=== PATIENT | male | born 1945 | race Caucasian/White ===

== ENCOUNTER 2016-06-20 10:46 | Emergency (ER) | payer MEDICARE, MEDICAID ==
[~2016-06-20] VITALS: Ht 182.9 cm; Wt 86.0 kg
[~2016-06-20 10:46] MED LIST: ACETAMINOPHEN500 M3 PO; ACTOS 15MG TABL15 MG PO; ASPIRIN CHILDRE81 M1 PO; BACTRIM DS 8001 TAB PO; BISAC-EVAC10 MG PR; CLINDAMYCIN HC300 MG PO; COMBIVENT INH14.7 G1 IN; CONSTULOSE10 GM/15 M PO; COUMADIN 5MG TAB5 MG PO; DEPAKOTE DR500 MG PO; DEPAKOTE ER500 MG PO; Depakote ER500 MG PO; GABAPENTIN 100100 MG PO; GAVISCON 6180 ML/BOT OR; GEODON40 MG PO; IMODIUM 2MG. CAP2 MG PO; IRON TABLETS325 M1 PO; KEPPRA 500 MG500 MG PO; LASIX20 MG PO; LEVAQUIN500 MG PO; LORAZEPAM0.5 MG/TAB IM; METFORMIN HCL850 MG PO; MIRALAX17 GM/PACK PO; PROMETHAZINE HC25 M1 PO; PROSCAR5 MG PO; SINEMET 25/1001 TAB PO; TRAZODONE 50MG50 MG PO; TYLENOL W/CODEI1 TA2 PO; ZYPREXA15 MG PO
[2016-06-20] MEDS ORDERED: KONSYL6 GM/DOSE PO (11:02)
--- NOTE | 2016-06-20 11:08 | Emergency Room Report ---
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 STATES PT WAS NOT FULLY RESPONSIVE AND HAD LEFT ARM DRIFT. PT ALERT AND ORIENTED AT THIS TIME. NO DROOPING OR ARM DRIFT NOTED AT THIS TIME. 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 N Clinical Suspician of Infection? N Mental Status: 1 - Regular (Normal Baseline) Sepsis Risk:Possible Sepsis Risk Have you (or family members/close friends) recently traveled outside the [place]? N If Yes, where/when: Have you had exposure to infectious disease within the past month? N TB? Other? Specify: Comment The patient's primary by ambulance from [facility]. Personnel there are reported to have noticed a LEFT facial droop and slurred speech, decreased responsiveness, and LEFT arm drift. The patient currently says he feels generally weak but otherwise has no complaints. He denies pain. I do not see any prior diagnoses of stroke or TIA. He does have Parkinson's disease. He says he vomited one week ago. No current nausea, shortness of breath, visual disturbance, numbness. No cough or fever. No diarrhea. ALLERGIES Coded Allergies: escitalopram (From Lexapro) (UNKNOWN 06/07/15) Home Medications Active Scripts Loperamide Hcl (Loperamide) 2 MG PO Q6HP #30 CAP Prov: 06/08/12 Reported Medications Aspirin 81 MG PO DAILY Acetaminophen (Acetaminophen Extra Strength) 1,000 MG PO Q6HP PRN PAIN/ FEVER Bisacodyl (Bisacodyl Supp) 10 MG [place] DAILYP PRN CONSTIPATION Lactulose (Constulose) 10 GM PO DAILYP PRN CONSTIPATION APAP 300MG W/CODEINE 30MG (Acetaminophen-Cod #3 Tablet) 1 TAB PO TID METFORMIN HCL (Metformin HCl) 850 MG PO TID GABAPENTIN (Gabapentin 100MG Capsule) 600 MG PO TID MAG CARB/AL HYDROX/ALGINIC AC (Acid Gone Antacid Liquid) 30 ML OR Q4HP Ferrous Sulfate (Iron) 325 MG PO DAILY Finasteride (Proscar) 5 MG PO DAILY CARBIDOPA/LEVODOPA (Carbidopa-Levodopa 25-100 Tab) 1 TAB PO TID Pioglitazone (Actos 15MG) 15 MG PO DAILY TRAZODONE HCL (Trazodone HCl) 50 MG PO QHS ZIPRASIDONE HCL (Geodon) 20 MG PO DAILY Levetiracetam (Keppra 500 Mg Tablet) 250 MG PO TID Psyllium (Konsyl) 6 GM PO BID Ascorbic Acid (Vitamin C) 1,000 MG PO DAILY Ondansetron (Zofran 4MG Odt) 4 MG PO Q6HP PRN NAUSEA AND VOMITING History Medical History General CAD? No Angina: Yes [place]: Yes Hypertension? Yes Hyperlipidemia? Yes CHF? No COPD? Yes Asthma? Yes Anemia? Yes Hernia? No Thyroid Problems? No Hypothyroidism? No CVA? No Seizures? Yes Diabetes? Yes End Stage Renal Disease? No UTI? No Stones? No GB Disease: No Nephritic Syndrome? No Asplenia? No Hepatitis? No Sickle Cell Disease? No Arthritis? Yes Cataracts? No Glaucoma? No MRSA? No TB? No Cancer? No Immunization Hx DT/Tetanus > 10 YRS Flu THISFLUSEA Pneumonia Received In Past Surgical Hx Previous Surgery?Y TOE SURGERY-7 YEARS AGO Appendectomy EYE SURGERY-2 YEARS AGO PACEMAKER ABLASION RT GREAT TOE AMPUTATION Family History Family Hx Diabetes Yes CAD Yes Hypertension Yes Hyperlipidemia Yes Cancer No TB No Social History Smoking Hx Smoker: Former Smoker Tobacco: No Packs/day < 1 Pack Alcohol Alcohol: No Review of Systems All Other Systems Reviewed and Negative Constitutional denies fever, weakness Eyes denies blindness, denies blurred vision ENT denies: ear pain, throat pain. Respiratory denies cough, denies shortness of breath Cardiovascular denies chest pain Gastrointestinal denies abdominal pain, denies diarrhea, vomiting (one week ago) Genitourinary denies: dysuria. Musculoskeletal denies joint pain, denies muscle pain Psychiatric/Neurological denies headache, denies numbness Physical Exam Vital Signs Vital Signs Date Time Temp Pulse Resp B/P Pulse O2 O2 Flow FiO2 Ox Delivery Rate 06/20 1256 75 20 114/67 94 06/20 1154 78 20 123/72 94 01/11 1103 98.6 101 20 105/60 94 General Appearance normal appearance, WD/WN Eye Exam - bilateral eye normal exam, bilateral eye PERRL, bilateral eye EOMI Ear, Nose, Throat hearing grossly normal, normal ENT inspection Neck normal inspection, non-tender, supple, full range of motion Respiratory Status Yes: trachea midline, chest symmetrical, non tender chest. No: respiratory distress. Lung Sounds bilateral: normal breath sounds, lungs clear. 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-XII nml as tested (Parkinsonian tremor) Mental status normal mood/affect Skin intact, normal color, warm/dry Stroke Score/Tx Stroke Evaluation NIH STROKE SCORE NIH STROKE SCORE Response Value 1a.Level of Consciousness ALERT 0 1b.LOC Questions BOTH INCORRECT 2 1c.LOC Commands OBEYS BOTH CORRECTLY 0 2 .Best Gaze NORMAL 0 3 .Visual NO VISUAL LOSS 0 4 .Facial Palsy NORMAL 0 5a.Motor Arm Left NO DRIFT 0 5b.Motor Arm Right NO DRIFT 0 6a.Motor Leg Left DRIFT 1 6b.Motor Leg Right DRIFT 1 7 .Limb Ataxia ABSENT 0 8 .Sensory NORMAL 0 9 .Best Language NO APHASIA 0 10.Dysarthria NORMAL ARTICULATION 0 ED.NIH11 NO NEGLECT 0 Total 4 Medical Decision Making LABS/Meds/Orders Pt receiving controlled substance in ED? No Results/Orders Laboratory Tests 06/20/16 1050: Sodium 139, Potassium 4.5, Chloride 104, Carbon Dioxide 27, BUN 29 H, Creatinine 1.1, Estimated Creat Clear 78, Estimated GFR (MDRD) 67, Glucose 162 H, Calcium 8.9, Total Bilirubin 0.2, AST 10 L, ALT 11 L, Alkaline Phosphatase 80, Troponin I 0.02, Total Protein 6.9, Albumin 3.2 L, Globulin 3.7 H, Albumin /Globulin Ratio 0.9 L, WBC 8.6, RBC 3.99 L, Hgb 12.2 L, Hct 35.9 L, MCV 89.8 , RDW 14.6, Plt Count 215, MPV 9.5, Gran % 74.8, Gran # 6.4, Lymphocytes % 15.3, Monocytes % 7.0, Eosinophils % 2.3, Basophils % 0.7, Lymphocytes # 1.3, Monocytes # 0.6, Eosinophils # 0.2, Basophils # 0.1, PUBS MCHC 34.1, MCH 30.6 Orders Procedure Date/time Status ELECTROCARDIOGRAM REQUEST 06/20 112 Active CHEST-PORTABLE 06/20 112 Active URINALYSIS/COMPLETE 06/20 1120 Active TROPONIN I 06/20 1120 Complete CBC WITH AUTO DIFF 06/20 1120 Complete CHEM 12 PROFILE 06/20 1121 Complete CM/EKG CM/EKG Comments EKG interpreted by David Horne MD: Rhythm: Ventricular paced rhythm Rate: 84 No evidence of acute ischemia or injury XRAY/CT/US XRAY/CT/US XRAY chest Comment X-ray interpreted by David Horne M.D. No infiltrate, pneumothorax, pleural effusion, or wide mediastinum. Pacemaker present. CT head Comment CT scan interpreted by radiologist: Atrophy with chronic ischemic change. No acute process. Progress - 12:55 PM: Case discussed with Dr. Blue, covering for Dr. Law. Discussed all clinical data. He recommends the patient be started on aspirin 325 mg per day, currently he is only taking 81 mg a day. He recommends starting lisinopril 5 mg a day and discharging the patient back at [facility]. Departure Departure Disposition DC Home or Self Care(routine) Clinical Impression Primary Impression: TIA (transient ischemic attack) Qualifiers: Transient cerebral ischemia type: unspecified Qualified Code: G45.9 - Transient cerebral ischemic attack, unspecified Condition STABLE Referrals Dalton Law (PCP/Family) Patient Instructions DI for Transient Ischemic Attack Additional Instructions Increase aspirin dose to 325 mg a day and start lisinopril 5 mg a day. Return to the emergency department if facial droop, weakness, decreased responsiveness, or speech problems return. Prescriptions Current Visit Scripts Aspirin (Aspirin Ec) 325 MG PO DAILY #30 ECT LISINOPRIL (Lisinopril) 5 MG PO DAILY #30 TAB ED Critical Care Critical Care No at 1301
[2016-06-20] MEDS ORDERED: ZOFRAN ODT4 MG PO (11:15)
[2016-06-20] MEDS ORDERED: VITAMIN C500 M1 PO (11:15)
--- NOTE | 2016-06-20 11:15 | RADIOLOGY REPORT PS360 ---
CT HEAD W/O CONTRAST HISTORY: Left-sided facial droop with upper extremity weakness AMS COMPARISON: 09/21/2013 TECHNIQUE: Axial images obtained without contrast. Brain and bone windows reviewed. FINDINGS: There is generalized atrophy with hypoattenuation in the periventricular and subcortical region consistent with ischemic gliotic change from microvascular disease. Old lacunar infarction of the left subinsular region. No midline shift, mass effect, intracranial hemorrhage, or hydrocephalus is evident. No mastoid effusion or sinus air-fluid level. Mild mucosal thickening ethmoid sinuses. IMPRESSION: 1. No acute intracranial pathology. 2. Atrophy with chronic ischemic change. 3. There is no evidence of intracranial hemorrhage, focal mass, or acute territorial infarction. A negative CT does not exclude an acute CVA. A follow-up head CT or MRI is recommended if neurological symptoms persist
[2016-06-20 11:33] LABS: HEMOGLOBIN 12.2 g/dL (14.1-18.0); LYMPH # 1.3 K/mm3 (0.7-4.5); LYMPH % 15.3 % (10-50)
[2016-06-20] MEDS ORDERED: LISINOPRIL 5MG T5 MG PO (13:01)
[2016-06-20] MEDS ORDERED: ASPIRIN EC325 M1 PO (13:01)
[2016-06-20 13:09] VITALS: BP 114/67
--- NOTE | 2016-06-20 15:20 | RADIOLOGY REPORT PS360 ---
CHEST-PORTABLE HISTORY: Cough stroke sx COMPARISON: 12/09/2014 FINDINGS: Cardiac pacemaker device present from the right subclavian approach at 4. Normal heart size. Slightly elevated right hemidiaphragm. No lobar consolidation or collapse. IMPRESSION: No change with no acute finding.
== END 2016-06-20 13:30 | disposition home or self-care (01) ==
LOC: ER 10:46
PROVIDERS: Emergency Medicine
DX: G45.9 Transient cerebral ischemic attack, unspecified (principal); Z87.891 Personal history of nicotine dependence; J44.9 Chronic obstructive pulmonary disease, unspecified; I10 Essential (primary) hypertension; E11.9 Type 2 diabetes mellitus without complications; R29.704 NIHSS score 4

== ENCOUNTER 2016-10-31 11:56 | Emergency (ER) | payer MEDICARE, MEDICAID ==
[~2016-10-31] VITALS: Ht 182.9 cm; Wt 81.6 kg
[~2016-10-31 11:56] MED LIST changes: +ASPIRIN EC325 M1 PO; +KONSYL6 GM/DOSE PO; +LISINOPRIL 5MG T5 MG PO; +VITAMIN C500 M1 PO; +ZOFRAN ODT4 MG PO
[2016-10-31 12:16] LABS: HEMOGLOBIN 12.7 g/dL (14.1-18.0); LYMPH # 1.6 K/mm3 (0.7-4.5); LYMPH % 28.2 % (10-50)
--- NOTE | 2016-10-31 12:29 | Emergency Room Report ---
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 DENIES PAIN. 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 N Clinical Suspician of Infection? N Mental Status: 1 - Regular (Normal Baseline) Sepsis Risk:Low Sepsis Risk Have you (or family members/close friends) recently traveled outside the [place]? N If Yes, where/when: Have you had exposure to infectious disease within the past month? TB? Other? Specify: Patient from [place], bedridden due to balance issues, tried to turn in bed this morning upon awakening and noted right leg weakness; this has since resolved. He has no complaints currently. See in ER three times in June for staring spell on one visit, facial drooping on another, and right sided weakness on another, and discharged each time with inconclusive work ups. ALLERGIES Coded Allergies: escitalopram (From Lexapro) (UNKNOWN 06/07/15) Home Medications Active Scripts Aspirin (Aspirin Ec) 325 MG PO DAILY #30 ECT Prov: 06/20/16 LISINOPRIL (Lisinopril) 5 MG PO DAILY #30 TAB Prov: 06/20/16 Loperamide Hcl (Loperamide) 2 MG PO Q6HP #30 CAP Prov: 06/08/12 Reported Medications Aspirin 81 MG PO DAILY Acetaminophen (Acetaminophen Extra Strength) 1,000 MG PO Q6HP PRN PAIN/ FEVER Bisacodyl (Bisacodyl Supp) 10 MG [place] DAILYP PRN CONSTIPATION Lactulose (Constulose) 10 GM PO DAILYP PRN CONSTIPATION APAP 300MG W/CODEINE 30MG (Acetaminophen-Cod #3 Tablet) 1 TAB PO TID METFORMIN HCL (Metformin HCl) 850 MG PO TID GABAPENTIN (Gabapentin 100MG Capsule) 600 MG PO TID MAG CARB/AL HYDROX/ALGINIC AC (Acid Gone Antacid Liquid) 30 ML OR Q4HP Ferrous Sulfate (Iron) 325 MG PO DAILY Finasteride (Proscar) 5 MG PO DAILY CARBIDOPA/LEVODOPA (Carbidopa-Levodopa 25-100 Tab) 1 TAB PO TID Pioglitazone (Actos 15MG) 15 MG PO DAILY TRAZODONE HCL (Trazodone HCl) 50 MG PO QHS ZIPRASIDONE HCL (Geodon) 20 MG PO DAILY Levetiracetam (Keppra 500 Mg Tablet) 250 MG PO TID Psyllium (Konsyl) 6 GM PO BID Ascorbic Acid (Vitamin C) 1,000 MG PO DAILY Ondansetron (Zofran 4MG Odt) 4 MG PO Q6HP PRN NAUSEA AND VOMITING History Medical History General CAD? No Angina: Yes [place]: Yes Hypertension? Yes Hyperlipidemia? Yes CHF? No DVT? No PE? No COPD? Yes Asthma? Yes Anemia? Yes GERD? No Gastric ulcers? No GI Bleed? No Hernia? No Thyroid Problems? No Hypothyroidism? No CVA? No Seizures? Yes Diabetes? Yes Insulin Dependent: No Insulin Pump: No Home FSBS? Yes Renal Insuffiency? Yes End Stage Renal Disease? No UTI? No Stones? No GB Disease: No Nephritic Syndrome? No Asplenia? No Hepatitis? No Sickle Cell Disease? No Arthritis? Yes Migraines? No Cataracts? Yes Glaucoma? No MRSA? No HIV? No TB? No Anxiety? No Depression? No Cancer? No More? Yes Additional hx: PACEMAKER, PSYCHOTIC DISORDER, BIPOLAR Immunization Hx DT/Tetanus > 10 YRS Flu THISFLUSEA Pneumonia Received In Past Surgical Hx Previous Surgery?Y TOE SURGERY-7 YEARS AGO Appendectomy EYE SURGERY-2 YEARS AGO PACEMAKER ABLASION RT GREAT TOE AMPUTATION Family History Family Hx Diabetes Yes CAD Yes Hypertension Yes Hyperlipidemia Yes Cancer No TB No Social History Smoking Hx Smoker: Never Smoker Tobacco: No Packs/day < 1 Pack Alcohol Alcohol: No Review of Systems All Other Systems Reviewed and Negative Musculoskeletal see HPI Psychiatric/Neurological see HPI Physical Exam Vital Signs Vital Signs Date Time Temp Pulse Resp B/P Pulse O2 O2 Flow FiO2 Ox Delivery Rate 10/31 1158 97.9 86 18 145/81 96 General Appearance normal appearance, WD/WN, no apparent distress Eye Exam - bilateral eye normal exam, bilateral eye PERRL, bilateral eye EOMI (no diplopia) Neck normal inspection, non-tender, supple, full range of motion Respiratory Status Yes: trachea midline, chest symmetrical, non tender chest. No: respiratory distress, tender on palpation, use of accessory muscles, pain on inspiration, pain on expiration, productive cough, non productive cough. Lung Sounds bilateral: normal breath sounds, lungs clear. 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 Yes NIH STROKE SCORE NIH STROKE SCORE Response Value 1a.Level of Consciousness ALERT 0 1b.LOC Questions ANSWERS BOTH CORRECTLY 0 1c.LOC Commands OBEYS BOTH CORRECTLY 0 2 .Best Gaze NORMAL 0 3 .Visual NO VISUAL LOSS 0 4 .Facial Palsy NORMAL 0 5a.Motor Arm Left NO DRIFT 0 5b.Motor Arm Right NO DRIFT 0 6a.Motor Leg Left NO DRIFT 0 6b.Motor Leg Right NO DRIFT 0 7 .Limb Ataxia ABSENT 0 8 .Sensory NORMAL 0 9 .Best Language NO APHASIA 0 10.Dysarthria NORMAL ARTICULATION 0 ED.NIH11 NO NEGLECT 0 Total 0 Treatment Consideration t-PA ordered? No (NIHSS 0: likley TIA) Reason t-PA excluded: Drug tx not indicated Medical Decision Making LABS/Meds/Orders Pt receiving controlled substance in ED? No Results/Orders Laboratory Tests 10/31/16 1210: Sodium 142, Potassium 3.9, Chloride 107, Carbon Dioxide 24, BUN 29 H, Creatinine 1.2, Estimated Creat Clear 68, Estimated GFR (MDRD) 60, Glucose 90, Calcium 9.0, Total Bilirubin 0.2, AST 9 L, ALT 13, Alkaline Phosphatase 66, Total Protein 7.2, Albumin 3.4, Globulin 3.8 H, Albumin/Globulin Ratio 0.9 L, WBC 5.8, RBC 4.00 L, Hgb 12.7 L, Hct 38.2 L, MCV 95.3, RDW 13.7, Plt Count 209, MPV 7.3 L, Gran % 58.3, Gran # 3.4, Lymphocytes % 28.2, Monocytes % 8.7, Eosinophils % 4.2, Basophils % 0.7, Lymphocytes # 1.6, Monocytes # 0.5, Eosinophils # 0.3, Basophils # 0.0, PUBS MCHC 33.3, MCH 31.7 H Current Medication Orders Sig/Darnell Start time Last Medication Dose Route Stop Time Status Admin Calcium Gluconate 0 .STK-MED ONE 10/31 125 DC .ROUTE Sodium Polystyrene 0 .STK-MED ONE 10/31 1253 DC Sulfonate .ROUTE Sodium Chloride 10 ML PRN PRN 10/31 1215 AC IV 11/01 1207 Orders Procedure Date/time Status DIET-NOTHING BY MOUTH 10/31 D Active ELECTROCARDIOGRAM REQUEST 10/[address] HEAD REQ 10/31 1208 Complete IV SALINE LOCK 10/31 120 Active CBC WITH AUTO DIFF 10/31 120 Complete CHEM 12 PROFILE 10/31 1208 Complete CM/EKG CM/EKG EKG rate, NSR, rhythm, no evid. of ischemic chgs, no ectopy, normal QRS, normal DE, normal EKG (NSR LBBB) XRAY/CT/US XRAY/CT/US CT head CT interpretation by reviewed by me (report reviewed) Time results known: 1323 CT Results normal/NAD (atrophy w/ vent enlgm neg acut) Departure Departure Time of Disposition 1325 Disposition DC Home or Self Care(routine) Clinical Impression Primary Impression: Transient right leg weakness Condition STABLE Referrals LISSY MARSHALL ELIZA Patient Instructions Transient Ischemic Attack Additional Instructions It is possible that you have had either a mini stroke or some type of neurological event; recommend follow up with your family doctor this week and also make an appointment to see a neurologist in specialty clinic at the discretion of your family doctor for further assessment and testing. Discharge Counseling Counseled pt/family regarding diagnosis, test results, home care, follow up needs ED Critical Care Critical Care No at 1323
--- NOTE | 2016-10-31 13:10 | RADIOLOGY REPORT PS360 ---
CT HEAD W/O CONTRAST HISTORY: RT LEG WEAKNESS ORDERING PHYSICIAN: Светлана Adame MD PATIENT AGE: 70 years COMPARISON: 06/23/2016 TECHNIQUE: Axial images obtained without contrast. Brain and bone windows reviewed. FINDINGS: No midline shift, mass effect, intracranial hemorrhage, hydrocephalus, or extra-axial fluid collection is evident. There is generalized atrophy with ventricular enlargement likely related to the underlying volume loss similar to the previous exam. The calvarium has an unremarkable appearance. No mastoid effusion. The visualized paranasal sinuses are unremarkable. Postsurgical changes of the facial bones IMPRESSION: 1. No change with no acute finding. 2. Atrophy with compensatory ventricular enlargement.
[2016-10-31 13:51] VITALS: BP 113/72
--- OUTSIDE RECORDS SUMMARY | 2016-11-06 06:12 | External Medical Summary Rpt ---
Author Author [employer], [employer] Organization [employer] Address Unknown Phone Unavailable
--- OUTSIDE RECORDS SUMMARY | 2016-11-06 06:12 | External Medical Summary Rpt ---
Author Author [employer] Organization [employer] Address Unknown Phone Unavailable Purpose Continuity of Care Document - through 2016
--- OUTSIDE RECORDS SUMMARY | 2016-11-06 06:12 | External Medical Summary Rpt ---
Demographics Preferred Language Indonesian Marital Status Unknown Mosque Affiliation Unknown Race Unknown Ethnic Group Unknown Author Author , Organization [employer] Address Unknown Phone Unavailable Purpose Continuity of Care Document - through 2016 Immunization No patient found.
--- OUTSIDE RECORDS SUMMARY | 2016-11-06 06:12 | External Medical Summary Rpt ---
Demographics Preferred Language Danish Marital Status Unknown Baptism Affiliation Unknown Race Unknown Ethnic Group Unknown Author Author , Organization [employer] Address Unknown Phone Unavailable Purpose Continuity of Care Document - through 2016 Immunization No patient found.
== END 2016-10-31 14:10 | disposition home or self-care (01) ==
LOC: ER 11:56
PROVIDERS: Emergency Medicine
DX: M62.81 Muscle weakness (generalized) (principal); I10 Essential (primary) hypertension; J44.9 Chronic obstructive pulmonary disease, unspecified; Z95.0 Presence of cardiac pacemaker; E11.9 Type 2 diabetes mellitus without complications